=== PATIENT | male | born 1995 | race Caucasian/White ===

== ENCOUNTER 2017-04-26 14:54 | Emergency (ER) | payer BC, MEDICAID ==
[~2017-04-26] VITALS: Ht 182.9 cm; Wt 106.6 kg
[2017-04-26] MEDS ORDERED: DOXYCYCLINE HYCLATE 100 MG TABLET PO ONE (15:15)
[2017-04-26] MEDS ORDERED: CEFTRIAXONE 500 MG VIAL IM ONE (15:15)
[2017-04-26] MEDS ORDERED: VALACYCLOVIR HCL 500 MG TABLET PO ONE (15:30)
[2017-04-26] MEDS ORDERED: CEFTRIAXONE 500 MG VIAL ONE ×3 (15:30→15:45)
[2017-04-26] MEDS ORDERED: VALACYCLOVIR HCL 500 MG TABLET ONE ×2 (15:30→16:13)
[2017-04-26] MEDS ORDERED: DOXYCYCLINE HYCLATE 100 MG TABLET ONE (15:30)
[2017-04-26] MEDS ORDERED: DOXYCYCLINE HYCLATE 100 MG INJ IV ONE ×2 (15:31→15:44)
[2017-04-26] MEDS ORDERED: EPINEPHRINE 1:10,000 1 MG/10 ML DISP.SYRIN ONE (15:32)
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
--- NOTE | 2017-04-26 16:05 | NUR ---
Gave pt RX and d/c instructions, verbalized understanding.
[2017-04-30 08:09] LABS: *GC NAA Negative (Negative); *TRIC.VAG. NAA Negative (Negative)
== END 2017-04-26 16:05 | disposition home or self-care (01) ==
LOC: ER 14:54
DX: Z00.8 Encounter for other general examination (principal)
CPT/HCPCS: 87491; A4663; J0696; J3490

== ENCOUNTER 2022-08-16 18:22 | Emergency (ER) | payer BC, MEDICAID, OTHER ==
[~2022-08-16] VITALS: Ht 182.9 cm; Wt 102.1 kg
--- NOTE | 2022-08-16 19:10 | NUR ---
Received report from BROCK Mckeon.
--- NOTE | 2022-08-16 19:10 | NUR ---
Dr. Macdonald at bedside. MSE in progress.
[2022-08-16] MEDS ORDERED: METH-807 PO (19:27)
--- NOTE | 2022-08-16 19:57 | NUR ---
Patient discharged to home in stable condition. Written and verbal after care instructions given. Patient verbalizes understanding of instructions. Stressed follow up or return to ER for worsening s/s.
[2022-08-16 19:58] VITALS: BP 108/82
== END 2022-08-16 19:55 | disposition home or self-care (01) ==
LOC: ER 18:22
DX: M54.50 Low back pain, unspecified (principal)
CPT/HCPCS: A4663

== ENCOUNTER 2024-10-01 21:13 | Emergency (ER) | payer MEDICAID, OTHER ==
[~2024-10-01] VITALS: Ht 182.9 cm; Wt 113.4 kg
[~2024-10-01 21:13] MED LIST: METH-807 PO
[2024-10-01 22:44] LABS: BASOPHILS % (AUTO) 0.5 % (0.0-2.0); EOSINOPHILS % (AUTO) 0.1 % (0.0-7.0); HEMOGLOBIN 14.4 g/dL (12.5-16.3); LYMPHOCYTES # (AUTO) 1.4 K/uL (0.8-4.8); LYMPHOCYTES % (AUTO) 22.2 % (20.5-51.5); MEAN CORPUSCULAR HEMOGLOBIN 31.9 uug (23.8-33.4); MEAN CORPUSCULAR HGB CONC 34 g/dL (32.5-36.3); MEAN CORPUSCULAR VOLUME 92.9 fL (73.0-96.2); MONOCYTES # (AUTO) 0.9 K/uL (0.1-1.30); NEUTROPHILS # (AUTO) 3.9 K/uL (1.8-8.9); NEUTROPHILS % (AUTO) 62.2 % (38.5-71.5); PLATELET COUNT (AUTO) 162 K/uL (152-348); RED BLOOD CELL COUNT(AUTO) 4.52 MIL/uL (4.06-5.63); WHITE BLOOD COUNT (AUTO) 6.2 K/uL (3.6-10.2)
[2024-10-01 22:45] LABS: DIFFERENTIAL COMMENT 1
[2024-10-01 22:54] LABS: CALCIUM 8.7 mg/dL (8.5-10.1); CREATININE 1.4 mg/dL (0.6-1.3); POTASSIUM 3.5 mmol/L (3.5-5.1)
[2024-10-01] MEDS ORDERED: ACETAMINOPHEN 500 MG TABLET ONE (23:47)
[2024-10-01] MEDS ORDERED: KETOROLAC TROMETHAMINE 15 MG INJ ONE (23:47)
[2024-10-01] MEDS: ACETAMINOPHEN 500 MG TABLET PO ONE (23:50)
[2024-10-01] MEDS: IV NORMAL SALINE 1000 ML BAG IV ONE (23:50)
[2024-10-01] MEDS: KETOROLAC TROMETHAMINE 15 MG INJ IVP ONE (23:50)
[2024-10-01 23:59] LABS: LYMPHOCYTES % (MANUAL) 22 % (20-40); MONOCYTES % (MANUAL) 13 % (2-10); NEUTROPHILS % (MANUAL) 65 % (42-75); PLATELET ESTIMATE ADEQUATE
[2024-10-02] MEDS ORDERED: DEXAMETHASONE SOD PHOSPHATE 4 MG INJ ONE (00:01)
[2024-10-02] MEDS: DEXAMETHASONE SOD PHOSPHATE 4 MG INJ IV ONE (00:03)
[2024-10-02 00:41] VITALS: BP 130/72; TEMP 98.6; O2SAT 96
== END 2024-10-02 00:41 | disposition home or self-care (01) ==
LOC: ER 21:13
DX: J20.8 Acute bronchitis due to other specified organisms (principal); B97.89 Other viral agents as the cause of diseases classified elsewhere; Z20.822 Contact with and (suspected) exposure to COVID-19; Z88.7 Allergy status to serum and vaccine
CPT/HCPCS: 99284; 96374; 96361; 87426; 87804 ×2; 80048; 85025; 36415; 96375; 85007; J1885; J1100; J7040; 70030-TC; A4606; A4663; A9150